=== PATIENT | male | born 1990 | race Asian ===

== ENCOUNTER 2023-09-14 17:30 | Emergency (ER) | payer OTHER, SELFPAY ==
[2023-09-14 17:33] VITALS: BP 169/93; PULSE 62; RESP 18; TEMP 36.1; O2SAT 100; BMI 29.7
[2023-09-14 17:51] VITALS: PULSE 66; O2SAT 100
[2023-09-14] MEDS: ONDANSETRON 4 MG/2 ML INJ IV (17:52)
[2023-09-14 18:00] VITALS: PULSE 74; O2SAT 100
[2023-09-14 18:03] LABS: Add Manual Diff / Slide Review NO; Basophils Absolute Auto 0 /uL (0-100); Basophils Percent Auto 0.2 % (0-2); Eosinophils Absolute Auto 100 /uL (0-450); Eosinophils Percent Auto 1.1 % (2-4); Hemoglobin 14.8 g/dL (13.5-17.5); Lymphocytes Absolute Auto 2800 /uL (1100-4500); Lymphocytes Percent Auto 42.8 % (25-40); Mean Corpuscular HGB Conc 34.5 % (30-36); Monocytes Absolute Auto 600 /uL (0-900); Monocytes Percent Auto 8.7 % (3-14); Neutrophils Absolute Auto 3100 /uL (1500-7000); Neutrophils Percent Auto 47.2 % (50-75); Platelet Count 295 X10^3/uL (150-400); Red Blood Cell Count 5.12 X10^6/uL (4.5-5.9); Red Cell Distribution Width 13.6 % (11.6-14.8); White Blood Cell Count 6.6 X10^3/uL (4.5-11.0)
[2023-09-14 18:15] LABS: Alanine Aminotransferase 61 IU/L (<50); Albumin 4.7 g/dL (3.5-5.0); Albumin Globulin Ratio 1.3 (1.0-2.8); Alkaline Phosphatase 81 U/L (38-126); Aspartate Aminotransferase 43 IU/L (17-59); BUN Creatinine Ratio 13.7 (6-22); Bilirubin Total 1.3 mg/dL (0.2-1.3); Blood Urea Nitrogen 14 mg/dL (9-20); Calcium 9.7 mg/dL (8.4-10.2); Carbon Dioxide 27 mmol/L (22-32); Chloride 103 mmol/L (98-107); Estimated Glomerular Filt Rate > 60 mL/min (>60); Globulin 3.5 g/dL (1.7-4.1); Glucose 119 mg/dL (70-100); HEMOLYSIS < 15 (0-50); Lipase 51 U/L (23-300); Potassium 3.6 mmol/L (3.4-5.1); Sodium 139 mmol/L (137-145); Total Protein 8.2 g/dL (6.3-8.2)
--- NOTE | 2023-09-14 18:15 | ED.GENADULT ---
HPI - General Adult General Chief complaint: Abdominal Pain Stated complaint: lower L abd pain increasing/ V Time Seen by Provider: 09/14/23 18:03 Source: patient Mode of arrival: Ambulatory History of Present Illness HPI narrative: Otherwise healthy 33-year-old gentleman presents with left lower quadrant pain acute onset about 330 this afternoon. Progressively worsening to the point he is coming in for further evaluation. The pain was severe enough that he did have an episode of emesis. He is not reporting fevers, dysuria, flank pain or pain radiating into the testicles. No palpitations or chest pain. He states that he did have a small kidney stone that passed without intervention approximately 15 years ago. He has not noticed any gross hematuria. Related Data Previous Rx's Medication Instructions Recorded oxycodone-acetaminophen 5 mg-325 1 tab PO Q6H PRN pain #10 tabs 09/14/23 mg tablet tamsulosin 0.4 mg capsule 0.4 mg PO DAILY #10 caps 09/14/23 Allergies Allergy/AdvReac Type Severity Reaction Status Date / Time No Known Drug Allergies Allergy Verified 09/14/23 17:33 Review of Systems Review of Systems Narrative: Pertinent positive and negative findings as per HPI Patient History Social History Smoking Status: Never smoker Smoking Status: Never smoker Substance Use Type: does not use Exam Initial Vital Signs Initial Vital Signs: Vital Signs Temperature 97.0 F L 09/14/23 17:33 Pulse Rate 62 09/14/23 17:33 Respiratory Rate 18 09/14/23 17:33 Blood Pressure 169/93 H 09/14/23 17:33 Pulse Oximetry 100 09/14/23 17:33 Oxygen Delivery Method Room Air 09/14/23 17:33 General: Appears to be in pain but is able to give a complete and coherent history. Well-nourished well-developed HEENT: Moist mucous membranes, normal sclera with reactive pupils, Respiratory: Lungs are clear to auscultation, no wheezing no rales no rhonchi. Full and symmetrical air movement Cardiac: Regular rate and rhythm no murmurs no bruits Abdomen: Soft, no reproducible tenderness with palpation in the left lower quadrant area that he states is most painful, no flank pain Skin: Warm and dry, no rashes Neurologic: Grossly neurologically intact with no obvious asymmetries or abnormalities Extremities: No trauma, well perfused Psych: Cooperative, appropriate insight and affect Course Orders Ordered: ED Orders 09/14/23 19:10 CT kidney ureter bladder (KUB) Stat Discontinued Medications Hydromorphone HCl (Hydromorphone 0.5 Mg Inj) 0.5 mg IV Q15MIN PRN PRN Reason: Pain, Last Admin: 09/14/23 18:23 Dose: 0.5 mg Documented By: RIMA Sodium Chloride (Normal Saline 0.9%) 1,000 mls @ 1,000 mls/hr IV BOLUS ONE Stop: 09/14/23 19:15 Last Infusion: 09/14/23 19:25 Dose: Infused Documented By: Admin: 09/14/23 18:24 Dose: 1,000 mls/hr Documented By: RIMA Ketorolac Tromethamine (Ketorolac 30 Mg/Ml Vial) 15 mg IV NOW ONE Stop: 09/14/23 18:19 Last Admin: 09/14/23 18:24 Dose: 15 mg Documented By: RIMA Ondansetron HCl (Ondansetron 4 Mg Odt) 4 mg PO NOW PRN PRN Reason: Nausea And Vomiting Ondansetron HCl (Ondansetron 4 Mg/2 Ml Inj) 4 mg IV NOW PRN PRN Reason: Nausea And Vomiting Last Admin: 09/14/23 17:52 Dose: 4 mg Documented By: RIMA Oxycodone/Acetaminophen (Oxycodone/Acetaminophen 5/325 Tablet) 1 tab PO NOW ONE Stop: 09/14/23 20:39 Last Admin: 09/14/23 20:57 Dose: 1 tab Documented By: BARBER Oxycodone/Acetaminophen (Oxycodone/Apap 5/325 Prepack) 1 bottle MISC DIRECTED ONE Stop: 09/14/23 20:39 Last Admin: 09/14/23 20:57 Dose: 1 bottle Documented By: BARBER Tamsulosin HCl (Tamsulosin 0.4 Mg Capsule) 0.4 mg PO NOW ONE Stop: 09/14/23 20:39 Last Admin: 09/14/23 20:57 Dose: 0.4 mg Documented By: BARBER Vital Signs Vital signs: Vital Signs - 8 hr 09/14/23 17:33 09/14/23 17:51 09/14/23 18:00 Temperature 97.0 F L Pulse Rate 62 66 74 Respiratory Rate 18 Blood Pressure 169/93 H Pulse Oximetry 100 100 100 Oxygen Delivery Method Room Air 09/14/23 18:30 09/14/23 19:00 Temperature Pulse Rate 82 73 Respiratory Rate 20 13 Blood Pressure Pulse Oximetry 99 99 Oxygen Delivery Method Medical Decision Making Lab Data 09/14/23 17:46 09/14/23 17:46 Labs: Lab Results 09/14/23 Range/Units 17:46 WBC 6.6 (4.5-11.0) X10^3/uL RBC 5.12 (4.5-5.9) X10^6/uL Hgb 14.8 (13.5-17.5) g/dL Hct 43.0 (41-53) % MCV 84.0 (80-100) fL MCH 29.0 (26-34) PG MCHC 34.5 (30-36) % RDW 13.6 (11.6-14.8) % Plt Count 295 (150-400) X10^3/uL Neut % (Auto) 47.2 L (50-75) % Lymph % (Auto) 42.8 H (25-40) % [place] % (Auto) 8.7 (3-14) % Eos % (Auto) 1.1 L (2-4) % Baso % (Auto) 0.2 (0-2) % Neut # (Auto) 3100 (5575-7160) /uL Lymph # (Auto) 2800 (0975-8501) /uL [place] # (Auto) 600 (0-900) /uL Eos # (Auto) 100 (0-450) /uL Baso # (Auto) 0 (0-100) /uL Sodium 139 (137-145) mmol/L Potassium 3.6 (3.4-5.1) mmol/L Chloride 103 (98-107) mmol/L Carbon Dioxide 27 (22-32) mmol/L BUN 14 (9-20) mg/dL Creatinine 1.02 (0.66-1.25) mg/dL Estimated GFR > 60 (>60) mL/min BUN/Creatinine Ratio 13.7 (6-22) Glucose 119 H (70-100) mg/dL Calcium 9.7 (8.4-10.2) mg/dL Total Bilirubin 1.3 (0.2-1.3) mg/dL AST 43 (17-59) IU/L ALT 61 H (<50) IU/L Alkaline Phosphatase 81 (38-126) U/L Total Protein 8.2 (6.3-8.2) g/dL Albumin 4.7 (3.5-5.0) g/dL Globulin 3.5 (1.7-4.1) g/dL Albumin/Globulin Ratio 1.3 (1.0-2.8) Lipase 51 (23-300) U/L Urine Dip Bedside Urine Glucose 100 mg/dl Bedside Urine Bilirubin - Negative Bedside Urine Ketone ++ 40 Urine Specific [place] 1.01 Bedside Urine Occult Blood +++ Bedside Urine pH 6.0 Bedside Urine Protein + 30 Bedside Urine Urobilinogen - Negative Bedside Urine Nitrite - Negative Bedside Urine Leukocytes - Negative Esterase Point of care testing: Urine Dip Bedside Urine Glucose 100 mg/dl Bedside Urine Bilirubin - Negative Bedside Urine Ketone ++ 40 Urine Specific [place] 1.01 Bedside Urine Occult Blood +++ Bedside Urine pH 6.0 Bedside Urine Protein + 30 Bedside Urine Urobilinogen - Negative Bedside Urine Nitrite - Negative Bedside Urine Leukocytes - Negative Esterase Imaging Data CT scan - abdomen/pelvis: Radiologist's Impression: FINDINGS: Image quality: Excellent. Lung bases: Unremarkable. Heart: No significant findings. URINARY: Right Kidney: No stones or hydronephrosis. Right Ureter: No hydroureter. Left Kidney: No stones. Mild hydronephrosis. Mild perinephric stranding. Left Ureter: Mild hydro ureter as well as periureteral stranding. 2 mm mid/distal ureteral calcification is present on series 2, image 78 Bladder: Normal wall thickness. No stones. ABDOMEN: Liver: No contour-deforming solid mass. Gallbladder: No radiopaque gallstones or wall thickening. Biliary ducts: No biliary dilation. Pancreas: No ductal dilation. Spleen: Size is within normal limits. Adrenal Glands: No adrenal nodules. Stomach and Bowel: Normal colonic caliber, without significant wall thickening. Peritoneum: No abnormal intraperitoneal fluid. No free air. Ventral Wall: No hernia. Abdominal Nodes: No enlarged retroperitoneal or mesenteric lymph nodes. Vessels: Aorta and inferior vena cava are normal in size. PELVIS: Pelvic Organs: Unremarkable. Pelvic Nodes: Unremarkable. Miscellaneous: No inguinal hernias are seen. Bones: Unremarkable. IMPRESSION: Mild left hydronephrosis and hydroureter with mid/distal 2 mm calcification Dictated by: Mahi Singleton M.D. on 09/14/2023 at 20:12 MDM Narrative Medical decision making narrative: CC: Acute onset left lower quadrant pain Complicating co-morbidities: Kidney stone 15 years ago Data collected from: patient, Medical records reviewed: No medical records immediately available Differential considered: Kidney stone, pyelonephritis, testicular torsion, diverticulitis, bowel obstruction Exam documented above, pertinent findings include: Clearly hurting enough that it caused emesis. No reproducible pain on exam. He notes that he had a bowel movement with the onset of pain and it did not influence the pain at all Lab Test results independently reviewed as above. Pertinent findings: CBC is unremarkable Chemistries are reassuring. ALT is minimally elevated at 61 (normal limits are less than 50) Independently reviewed EKG: CT KUB was ordered Imaging studies independently reviewed: Minor left-sided hydroureter with a small stone in the mid to distal left ureter Treatments: He is given Toradol, 0.5 mg of parenteral Dilaudid, Zofran and a L of fluid. Re-evaluations: Pain is much better controlled after initial medications. Discussion: 33-year-old gentleman with acute onset left lower quadrant pain [address] scan suggest is a 2 mm stone in the mid to distal left ureter. There does not appear to be any alternative explanation such as significant infection, bowel obstruction or finding that would require further workup or hospitalization. With the stone at 2 mm, and having successfully passed a 3 mm stone over 15 years ago, he likely is going to be able to pass the stone without any difficulty. Pain was relatively easy to control with Toradol and a single dose of Dilaudid. He will be sent home with Percocet and instructions on ibuprofen and Tylenol use as well as .4 mg of Flomax to use until the stone has passed. Clearly reviewed signs and symptoms of infection, worsening pain or additional complications that would require return to the emergency department. This time questions are answered and he is safe for discharge Discharge Plan Departure Patient Disposition: Home Clinical Impression: Ureterolithiasis Instructions: DI for Kidney Stones Activity Restrictions/Additional Instructions: Thank you for coming in today You have a 2 mm stone that is approximately 2/[address] the ureter. It has a bit more movement to get to your bladder and out. I suspect this will happen without any additional intervention. I have given you Flomax in the emergency department to help encourage that. Please continue Flomax daily until the stone is passed. Using 400 mg of ibuprofen (2 [id number] pills) and 1 Tylenol every 6 hours can be very helpful in controlling pain. For severe pain you can add a Percocet to this combination. If you are using narcotics, these will cause constipation and I would recommend stool softener daily. If you find that you are getting worse or develop any new symptoms, please feel free to return to the emergency department for further evaluation. Prescriptions: New tamsulosin 0.4 mg capsule 0.4 mg PO DAILY Qty: 10 0RF oxycodone-acetaminophen 5-325 mg tablet 1 tab PO Q6H PRN (Reason: pain) Qty: 10 0RF Referrals: Miscellaneous,Doctor, MD [Primary Care Provider] - Stand Alone Forms: Patient Portal/API, Work Release Note
[2023-09-14] MEDS: HYDROMORPHONE 0.5 MG INJ IV (18:23)
[2023-09-14] MEDS: KETOROLAC 30 MG/ML VIAL 15 MG IV (18:24)
[2023-09-14] MEDS: SODIUM CHLORIDE 0.9% 1,000 ML 1000 ML IV (18:24)
[2023-09-14 18:30] VITALS: PULSE 82; RESP 20; O2SAT 99
--- NOTE | 2023-09-14 18:32 | PC.NURSE ---
Dr. Sanchez at bedside
[2023-09-14 19:00] VITALS: PULSE 73; RESP 13; O2SAT 99
--- NOTE | 2023-09-14 19:10 | DI.CT.S_ITS ---
PROCEDURE: CT KIDNEY URETER BLADDER (KUB) INDICATIONS: LLQ/flank pain TECHNIQUE: Axial sections were acquired from the lung bases to the pubic symphysis. Coronal and sagittal reformats were performed. For radiation dose reduction, the following was used: automated exposure control, adjustment of mA and/or kV according to patient size. COMPARISON: None. FINDINGS: Image quality: Excellent. Lung bases: Unremarkable. Heart: No significant findings. URINARY: Right Kidney: No stones or hydronephrosis. Right Ureter: No hydroureter. Left Kidney: No stones. Mild hydronephrosis. Mild perinephric stranding. Left Ureter: Mild hydro ureter as well as periureteral stranding. 2 mm mid/distal ureteral calcification is present on series 2, image 78 Bladder: Normal wall thickness. No stones. ABDOMEN: Liver: No contour-deforming solid mass. Gallbladder: No radiopaque gallstones or wall thickening. Biliary ducts: No biliary dilation. Pancreas: No ductal dilation. Spleen: Size is within normal limits. Adrenal Glands: No adrenal nodules. Stomach and Bowel: Normal colonic caliber, without significant wall thickening. Peritoneum: No abnormal intraperitoneal fluid. No free air. Ventral Wall: No hernia. Abdominal Nodes: No enlarged retroperitoneal or mesenteric lymph nodes. Vessels: Aorta and inferior vena cava are normal in size. PELVIS: Pelvic Organs: Unremarkable. Pelvic Nodes: Unremarkable. Miscellaneous: No inguinal hernias are seen. Bones: Unremarkable. IMPRESSION: Mild left hydronephrosis and hydroureter with mid/distal 2 mm calcification Dictated by: Mahi Singleton M.D. on 09/14/2023 at 20:12 Approved by: Mahi Singleton M.D. on 09/14/2023 at 20:13
[2023-09-14] MEDS: OXYCODONE/ACETAMINOPHEN 5/325 TABLET 1 TAB PO (20:57)
[2023-09-14] MEDS: TAMSULOSIN 0.4 MG CAPSULE PO (20:57)
[2023-09-14] MEDS: OXYCODONE/APAP 5/325 PREPACK 1 BOTTLE MISC (20:57)
== END 2023-09-14 21:08 | disposition home or self-care (01) ==
PROVIDERS: Family Medicine Addiction Medicine; Emergency Provider Emergency Medicine
DX: N20.1 Calculus of ureter (principal)
CPT/HCPCS: 36415; 74176; 80053; 81003; 83690; 85025; 96361; 96374; 96375; 99284; J1170; J1885; J2405

== ENCOUNTER 2023-09-17 07:18 | Emergency (ER) | payer OTHER, SELFPAY ==
[2023-09-17 07:25] VITALS: BP 145/94; PULSE 76; RESP 16; TEMP 36.4; O2SAT 100; BMI 29.7
--- NOTE | 2023-09-17 07:32 | ED.GENADULT ---
HPI - General Adult General Chief complaint: Abdominal Pain Stated complaint: kidney stone Time Seen by Provider: 09/17/23 07:22 Source: patient Mode of arrival: Ambulatory Limitations: no limitations History of Present Illness HPI narrative: 33-year-old male who was seen here in the emergency department approximately [address] scan. Was diagnosed with a 2-3 mm left-sided ureteral stone. Kidney function unremarkable. Urine showed no signs of infection. Discharged home with pain medication and tamsulosin. He states that for approximately 24 hours after being here in the emergency department his pain was relatively well controlled with the medicine but then the pain medicine now does not seem to be working. The pain has moved a little further down on his left lower quadrant. He is now having testicular pain. He is also having blood in his urine. He is throwing up because of the pain. No fevers. He would a kidney stone approximately 15 years ago that he passed on his own. He also states he is constipated because of the pain medicine Related Data Previous Rx's Medication Instructions Recorded oxycodone-acetaminophen 5 mg-325 1 tab PO Q6H PRN pain #10 tabs 09/14/23 mg tablet tamsulosin 0.4 mg capsule 0.4 mg PO DAILY #10 caps 09/14/23 ketorolac 10 mg tablet 10 mg PO Q6H PRN pain 5 days #20 09/17/23 tabs Allergies Allergy/AdvReac Type Severity Reaction Status Date / Time oxycodone AdvReac Vomiting Verified 09/17/23 07:35 Review of Systems Constitutional Constitutional: Reports system reviewed and no additional complaints, except as documented Gastrointestinal Gastrointestinal: Reports system reviewed and no additional complaints, except as documented Genitourinary Genitourinary: Reports system reviewed and no additional complaints, except as documented Integumentary/Breasts Skin/Breast: Reports system reviewed and no additional complaints, except as documented Hematologic/Lymphatic On Anticoagulants: No Patient History Social History Smoking Status: Never smoker Smoking Status: Never smoker Substance Use Type: does not use Exam Initial Vital Signs Initial Vital Signs: Vital Signs Temperature 97.5 F L 09/17/23 07:25 Pulse Rate 76 09/17/23 07:25 Respiratory Rate 16 09/17/23 07:25 Blood Pressure 145/94 H 09/17/23 07:25 Pulse Oximetry 100 09/17/23 07:25 Oxygen Delivery Method Room Air 09/17/23 07:25 Resp Effort & Inspection: normal respiratory effort GI Inspection: normal to inspection and non-distended Palpation: soft, No firm, No guarding and No tender Back/Spine/Pelvis Back: No CVA tenderness Skin General: no rashes or lesions noted Course Orders Ordered: ED Orders 09/17/23 07:23 Complete Blood Count AUTO DIFF Stat Comprehensive Metabolic Panel Stat Lipase Stat 09/17/23 07:31 US renal complete Stat 09/17/23 08:00 Urine Microscopic Stat Discontinued Medications Ketorolac Tromethamine (Ketorolac 30 Mg/Ml Vial) 30 mg IV NOW ONE Stop: 09/17/23 07:32 Last Admin: 09/17/23 07:47 Dose: 30 mg Vital Signs Vital signs: Vital Signs - 8 hr 09/17/23 07:25 Temperature 97.5 F L Pulse Rate 76 Respiratory Rate 16 Blood Pressure 145/94 H Pulse Oximetry 100 Oxygen Delivery Method Room Air Medical Decision Making Lab Data 09/17/23 07:44 09/17/23 07:44 Labs: Lab Results 09/17/23 09/17/23 Range/Units 07:44 08:00 WBC 9.4 (4.5-11.0) X10^3/uL RBC 4.75 (4.5-5.9) X10^6/uL Hgb 13.8 (13.5-17.5) g/dL Hct 39.9 L (41-53) % MCV 84.0 (80-100) fL MCH 29.1 (26-34) PG MCHC 34.6 (30-36) % RDW 13.2 (11.6-14.8) % Plt Count 246 (150-400) X10^3/uL Neut % (Auto) 70.9 (50-75) % Lymph % (Auto) 18.8 L (25-40) % [place] % (Auto) 9.5 (3-14) % Eos % (Auto) 0.5 L (2-4) % Baso % (Auto) 0.3 (0-2) % Neut # (Auto) 6700 (9009-9290) /uL Lymph # (Auto) 1800 (6533-6494) /uL [place] # (Auto) 900 (0-900) /uL Eos # (Auto) 0 (0-450) /uL Baso # (Auto) 0 (0-100) /uL Sodium 136 L (137-145) mmol/L Potassium 3.8 (3.4-5.1) mmol/L Chloride 103 (98-107) mmol/L Carbon Dioxide 24 (22-32) mmol/L BUN 11 (9-20) mg/dL Creatinine 1.26 H (0.66-1.25) mg/dL Estimated GFR > 60 (>60) mL/min BUN/Creatinine Ratio 8.7 (6-22) Glucose 106 H (70-100) mg/dL Calcium 9.4 (8.4-10.2) mg/dL Total Bilirubin 0.7 (0.2-1.3) mg/dL AST 29 (17-59) IU/L ALT 34 (<50) IU/L Alkaline Phosphatase 74 (38-126) U/L Total Protein 7.6 (6.3-8.2) g/dL Albumin 4.3 (3.5-5.0) g/dL Globulin 3.3 (1.7-4.1) g/dL Albumin/Globulin Ratio 1.3 (1.0-2.8) Lipase 41 (23-300) U/L Urine RBC 0-1/hpf (0-5/HPF) Urine WBC None seen (0-5/HPF) Ur Squamous Epith Cells 0-1 /hpf (0-5/HPF) Urine Bacteria None seen (None) Urine Sperm 0-1 Ur Culture Indicated? Cult not indicated Urine Dip Bedside Urine Glucose Negative Bedside Urine Bilirubin - Negative Bedside Urine Ketone - Negative Urine Specific [place] 1.025 Bedside Urine Occult Blood ++ Bedside Urine pH 6.0 Bedside Urine Protein + 30 Bedside Urine Urobilinogen - Negative Bedside Urine Nitrite - Negative Bedside Urine Leukocytes - Negative Esterase Point of care testing: Urine Dip Bedside Urine Glucose Negative Bedside Urine Bilirubin - Negative Bedside Urine Ketone - Negative Urine Specific [place] 1.025 Bedside Urine Occult Blood ++ Bedside Urine pH 6.0 Bedside Urine Protein + 30 Bedside Urine Urobilinogen - Negative Bedside Urine Nitrite - Negative Bedside Urine Leukocytes - Negative Esterase Imaging Data renal US: Radiologist's Impression: PROCEDURE: US RENAL COMPLETE INDICATIONS: LEFT FLANK PAIN; KNOWN LEFT URETERAL STONE TECHNIQUE: Real-time scanning was performed of the kidneys and bladder, with image documentation. COMPARISON: None. FINDINGS: Kidneys: Kidneys are normal in size. Right kidney measures 9.9 cm long; left kidney measures 12.9 cm long. Right renal cortical thickness is 1.5 cm; left renal cortical thickness is 2.0 cm. Renal cortical echotexture is normal. No hydronephrosis or nephrolithiasis. No suspicious solid mass lesions. Bladder: Urinary bladder was not assessed secondary to being decompressed. Miscellaneous: No free pelvic fluid. IMPRESSION: No acute sonographic abnormalities. No evidence for obstructive uropathy or urolithiasis. MDM Narrative Medical decision making narrative: Patient states that his symptoms are better after the Toradol. His urinalysis does not show any signs of infection. Kidney functions unremarkable. Renal ultrasound relatively unremarkable and expected given his recent diagnosis. I do not feel that we need to repeat a CT scan today. Patient is also constipated because of the pain medicine he has been taking. We talked about this in the use of laxatives and stool softeners. We will have him continue with acetaminophen. I will prescribe ketorolac for him at home as this seems to work for him here in the ER. He will save the pain medicine for times when the pain is worse. He was also given phone numbers for follow-up with Urology. He was given return precautions. He expressed understanding and agreement. Discharge Plan Departure Patient Disposition: Home Clinical Impression: Renal colic on left side Instructions: DI for Kidney Stones Activity Restrictions/Additional Instructions: I recommend that you continue with the tamsulosin/Flomax. Save the pain medicine that you were sent home with for times when the pain is at its worse. You can continue to take the acetaminophen/Tylenol. Instead of the ibuprofen/Motrin I recommend you take the ketorolac. This was the medicine that you were given a prescription for today. If your symptoms are not improving you do need follow-up with Urology. You can contact them with the number provided below to schedule follow-up appointment. Return to the emergency department for new symptoms. I also recommend an [id number] stool softener laxatives. An example this would be magnesium citrate or MiraLax. You can purchase these [id number] at any pharmacy. Prescriptions: New ketorolac 10 mg tablet 10 mg PO Q6H PRN (Reason: pain) 5 Days Qty: 20 0RF No Action tamsulosin 0.4 mg capsule 0.4 mg PO DAILY Qty: 10 0RF oxycodone-acetaminophen 5-325 mg tablet 1 tab PO Q6H PRN (Reason: pain) Qty: 10 0RF Referrals: Barak Vidal MD [Physician] - Miscellaneous,MD Yesy [Primary Care Provider] - Stand Alone Forms: Patient Portal/API, Work Release Note
[2023-09-17] MEDS: KETOROLAC 30 MG/ML VIAL IV (07:47)
[2023-09-17 08:12] LABS: Add Manual Diff / Slide Review NO; Basophils Absolute Auto 0 /uL (0-100); Basophils Percent Auto 0.3 % (0-2); Eosinophils Absolute Auto 0 /uL (0-450); Eosinophils Percent Auto 0.5 % (2-4); Hematocrit 39.9 % (41-53); Hemoglobin 13.8 g/dL (13.5-17.5); Lymphocytes Absolute Auto 1800 /uL (1100-4500); Lymphocytes Percent Auto 18.8 % (25-40); Mean Corpuscular HGB Conc 34.6 % (30-36); Mean Corpuscular Hemoglobin 29.1 PG (26-34); Monocytes Absolute Auto 900 /uL (0-900); Monocytes Percent Auto 9.5 % (3-14); Neutrophils Absolute Auto 6700 /uL (1500-7000); Neutrophils Percent Auto 70.9 % (50-75); Platelet Count 246 X10^3/uL (150-400); Red Blood Cell Count 4.75 X10^6/uL (4.5-5.9); Red Cell Distribution Width 13.2 % (11.6-14.8); White Blood Cell Count 9.4 X10^3/uL (4.5-11.0)
[2023-09-17 08:14] LABS: Alanine Aminotransferase 34 IU/L (<50); Albumin 4.3 g/dL (3.5-5.0); Albumin Globulin Ratio 1.3 (1.0-2.8); Alkaline Phosphatase 74 U/L (38-126); Aspartate Aminotransferase 29 IU/L (17-59); BUN Creatinine Ratio 8.7 (6-22); Bilirubin Total 0.7 mg/dL (0.2-1.3); Blood Urea Nitrogen 11 mg/dL (9-20); Calcium 9.4 mg/dL (8.4-10.2); Carbon Dioxide 24 mmol/L (22-32); Chloride 103 mmol/L (98-107); Estimated Glomerular Filt Rate > 60 mL/min (>60); Globulin 3.3 g/dL (1.7-4.1); Glucose 106 mg/dL (70-100); HEMOLYSIS < 15 (0-50); Lipase 41 U/L (23-300); Potassium 3.8 mmol/L (3.4-5.1); Sodium 136 mmol/L (137-145); Total Protein 7.6 g/dL (6.3-8.2)
[2023-09-17 08:33] LABS: Bacteria Urine None Seen; RBC Urine 0-1/HPF (0-5/HPF); Sperm Urine 0-1; Squamous Epithelial Cell Urine 0-1 /HPF (0-5/HPF); WBC Urine None Seen (0-5/HPF)
[2023-09-17 08:34] LABS: Culture Indicated Urine Cult Not Indicated
[2023-09-17 08:56] VITALS: BP 135/74; PULSE 72; RESP 18; O2SAT 99
== END 2023-09-17 08:58 | disposition home or self-care (01) ==
PROVIDERS: Emergency Provider Emergency Medicine
DX: N23 Unspecified renal colic (principal); N20.1 Calculus of ureter
CPT/HCPCS: 36415; 76770; 80053; 81003; 81015; 83690; 85025; 96374; 99283; 99284; J1885

== ENCOUNTER 2025-02-10 20:35 | Emergency (ER) | payer OTHER, SELFPAY ==
[2025-02-10 20:43] VITALS: BP 143/98; PULSE 84; RESP 18; TEMP 36.6; O2SAT 100; BMI 31.1
--- NOTE | 2025-02-10 23:10 | PC.NURSE ---
pt cut finger at work and used a powder on the laceration to stop the bleeding unable to assess the laceration at this time hand placed in NS and hibicleans to soak
--- NOTE | 2025-02-10 23:32 | PC.NURSE ---
hand placed in NS and hibicleans to soak
--- NOTE | 2025-02-11 00:16 | ED.WOUNDLAC ---
HPI - Wound/Laceration General Chief Complaint: Wound/Laceration Stated Complaint: finger laceration Time Seen by Provider: 02/10/25 23:09 Mode of arrival: Ambulatory History of Present Illness HPI narrative: 34-year-old male presents with right ring finger laceration after attempting to cut cucumbers with a knife. His last tetanus was 3 years ago. He is able to move his finger in all directions without any difficulty. He was unable to stop the bleeding and was concerned and came in to be evaluated. Other than what is stated 14 point review of system is negative. Related Data Previous Rx's Medication Instructions Recorded oxycodone-acetaminophen 5 mg-325 1 tab PO Q6H PRN pain #10 tabs 09/14/23 mg tablet tamsulosin 0.4 mg capsule 0.4 mg PO DAILY #10 caps 09/14/23 cephalexin 500 mg capsule 500 mg PO Q6H 7 days #28 caps 02/11/25 Allergies Allergy/AdvReac Type Severity Reaction Status Date / Time oxycodone AdvReac Vomiting Verified 09/17/23 07:35 Review of Systems Review of Systems ROS Unobtainable: All systems reviewed & are unremarkable except as noted in HPI and below Patient History Social History Smoking Status: Current every day smoker Smoking Status: Current every day smoker Exam Narrative Exam Narrative: GENERAL: [34] year old patient appears stated age. Well-developed patient, in mild distress. HEAD: Atraumatic. Normocephalic. EYES: Pupils equal round and reactive. Extraocular motions intact. No scleral icterus. No injection or drainage. NECK: Trachea midline. Non tender EXTREMITIES: No edema or joint tenderness. BACK: Nontender without deformity or crepitance. No flank tenderness. NEURO: AOx3. SKIN: No rash or erythema of visible areas. R 4th digit open wound on MP jt oval shape open cut, motor/sensory intact +2 rad pulse cap refill <2secs. FROM OF ALL JOINTS OF R 4th digit. Initial Vital Signs Initial Vital Signs: Vital Signs Temperature 98 F 02/10/25 20:43 Pulse Rate 84 02/10/25 20:43 Respiratory Rate 18 02/10/25 20:43 Blood Pressure 143/98 H 02/10/25 20:43 Pulse Oximetry 100 02/10/25 20:43 Oxygen Delivery Method Room Air 02/10/25 20:43 Course Vital Signs Vital signs: Vital Signs - 8 hr 02/10/25 20:43 Temperature 98 F Pulse Rate 84 Respiratory Rate 18 Blood Pressure 143/98 H Pulse Oximetry 100 Oxygen Delivery Method Room Air MDM - Wound/Laceration MDM Narrative Medical decision making narrative: Vital signs, nurse triage note, medication list, all previous ER visits and all imaging all reviewed. Open wound with no skin to suture. Bleeding easily stopped with pressure applied to affected area. Surgicel topical bacitracin and pressure gauze applied. Cephalexin given 1st dose here and on discharge home. Tdap updated here on today's visit also at patient's request. Differential diagnosis includes laceration, open wound, cellulitis, and foreign body. Discharge Plan Departure Patient Disposition: Home Clinical Impression: Open wound Instructions: Skin Wound Activity Restrictions/Additional Instructions: Return with new or worsening symptoms. Take your medicines as directed. Follow up with PCP in 1 week for wound recheck Prescriptions: New cephalexin 500 mg capsule 500 mg PO Q6H 7 Days Qty: 28 0RF No Action tamsulosin 0.4 mg capsule 0.4 mg PO DAILY Qty: 10 0RF oxycodone-acetaminophen 5-325 mg tablet 1 tab PO Q6H PRN (Reason: pain) Qty: 10 0RF Referrals: Fabrice Swain DO [Primary Care Provider] - Stand Alone Forms: Patient Portal/API/Survey
[2025-02-11] MEDS: cephALEXin 250 MG CAPSULE 500 MG PO (00:24)
[2025-02-11] MEDS: BACITRACIN OINT 0.9 GM PCKT 1 APPLIC TOP (00:25)
[2025-02-11] MEDS: TET,DIPH,PERTUSS(ACELL),VAC/PF 0.5 ML SYRINGE IM (00:25)
== END 2025-02-11 00:59 | disposition home or self-care (01) ==
PROVIDERS: Emergency Provider Family Medicine; PCP Family Medicine
DX: S61.214A Laceration without foreign body of right ring finger without damage to nail, initial encounter (principal); W26.0XXA Contact with knife, initial encounter; Z23 Encounter for immunization
CPT/HCPCS: 90471; 99283; 99284; 90715